=== PATIENT | female | born 1985 | race Caucasian/White ===

== ENCOUNTER 2016-05-02 21:58 | Observation (INO) ==
[2016-05-02 22:27] VITALS: BP 125/75
--- NOTE | 2016-05-02 22:57 | OB/GYN Progress Note ---
Date of Encounter: 05/02/16 Time of Encounter: 22:51 - Assessment and Plan (1) Acute cystitis during Current Visit: Yes Status: Acute continue course of abx follow up with research kennel supervisor as scheduled on 05/08 for follow up Qualifiers: Trimester: third trimester Qualified Code(s): O23.13 - Infections of bladder in , third trimester (2) Lumbar back pain Current Visit: Yes Status: Acute likely secondary to recommend support belt Qualifiers: Chronicity: unspecified Back pain laterality: unspecified Sciatica presence: unspecified whether sciatica present Qualified Code(s): M54.5 - Low back pain (3) Round ligament pain Current Visit: Yes Status: Acute secondary to recommend support belt Subjective - Subjective Principal diagnosis: UTI Interval history: 30 yo F at 35 weeks gestation presents c/o lumbar and lower abdominal cramping pain with increased frequency, urgency and hesitancy with urination that started approximately one week ago. She states she was seen by her OB yesterday, and started on Marcobid for UTI. Pt states that she has taken four doses so far and has no improvement of her symptoms. Pt denies fever, nausea, vomiting, pain or blood with urination, vaginal discharge or bleeding. Antepartum ROS: other (cramping lower back and abdominal pain) Objective - Vital Signs Vital Signs: Vital Signs Temp Pulse Resp BP 05/02/16 22:12 97.5 F L 107 18 125/75 Intake and Output 05/02/16 05/02/16 05/02/16 07:59 15:59 23:59 Output Total 50 / 50 Balance -50 / -50 Output: Urine 50 / 50 Other: Weight 86 kg Patient Weight 05/02/16 23:59 Weight 86 kg - Exam FHR: auscultation normal Auscultation: bilateral: normal Abdomen: Present: normal appearance, soft, gravid, other (nontender, -rebound, guarding,rigidity -CVA tenderness B/L) Uterus: Present: normal
[2016-05-02 23:01] LABS: Bilirubin,Urine Negative (Negative); Blood,Urine Negative (Negative); Clarity,Urine Turbid (Clear); Color,Urine Dark Yellow (Yellow); Glucose,Urine (UA) Normal (Normal); Ketones,Urine 15 mg/dL (Negative); Leukocyte Esterase,Urine Small (Negative); Nitrite,Urine Negative (Negative); PH,Urine 7.5 pH Units (5.0-8.0); Protein,Urine 30 mg/dL (Neg-Trace); Urobilinogen,Urine Normal (Normal)
[2016-05-02 23:02] LABS: Bacteria,Urine Few per hpf (None-Few); Hyaline Casts,Urine None Seen per lpf (None-Few); RBC,Urine 0-3 per hpf (0-3); Squamous Epithelial Cell,Urine Many per lpf (None-Few)
== END 2016-05-02 23:30 | disposition home or self-care (01) ==
LOC: INTOOBSV 21:58 → 1NENULAB 21:58 → UNDODISIN 23:30
PROVIDERS: ADMIT Obstetrics & Gynecology; ATTEND Obstetrics & Gynecology

== ENCOUNTER 2016-06-07 13:59 | Observation (INO) ==
[2016-06-07] MEDS ORDERED: Famotidine 20 MG/2 ML VIAL IVP PRN (14:35)
[2016-06-07] MEDS ORDERED: Naloxone 0.4 MG/ML INJ IVP PRN (14:35)
[2016-06-07] MEDS ORDERED: D5% in Lactated Ringers 1,000 ML IVC SCH (14:45)
--- NOTE | 2016-06-07 14:48 | OB/GYN History & Physical ---
Date of Encounter: 06/07/16 Time of Encounter: 14:55 Assessment and Plan (1) 40 weeks gestation of Current visit: Yes Status: Acute continued monitoring of FHR and contractions; IVF (2) Gestational hypertension Current visit: Yes Status: Acute PIH labs Qualifiers: Trimester: third trimester Qualified Code(s): O13.3 - Gestational [ -induced] hypertension without significant proteinuria, third trimester (3) Elective induction of labor planned Current visit: Yes Status: Suspected continued monitoring of fetus and mother with likely epidural for pain control History of Present Illness Chief complaint: 40 weeks ; Gestational HTN HPI: Ms. Mcqueen is a 30 year old female ; 40 weeks states that she was at the OB clinic being evaluated by the rack pusher and developed BP of 160/100 and was feeling contractions. She is a patient of Dr. Lira. Lisnet states that she has had 9 pregnancies, and only one was at 36 weeks due to deteriorating placental cord. Patients blood pressure is now 148/60. Patient denies fevers, nausea, vomitting. She was like an epidural SROM (-) JOVAN: 06/07/16 Blood type: A (+) (-) gbs, rubella, hbsag, t. pallidum, varicella Male: Tito Bottle feeding [facility] circumcision: yes UTI a few weeks ago; but treated and resolved Past Med Surg Social Fam HX - Past Medical History Medical history: no medical history, non-contributory Psychiatric history: no psych history - Past Surgical History Surgical History: non-contributory - Social History Smoking Status: Former smoker Smokeless Tobacco Status: No Alcohol use: none Drug use: none - Family History Mother Adopted: No Family Member Ethnicity: Non- Living Status: Still Living Hx Family Cardiac Disorders: Yes (triple bypass) Obstetrical History - Pregnancies : 9 Para: 9 - History/Complications History/Complications: gestational hypertension Medications and Allergies EPINEPHrine [Epipen] 0.3 mg IM ONCE #2 units 10/01/15 [Rx] Ferrous Sulfate 1 tab PO DAILY 05/02/16 [History] Caplet 1 tab PO DAILY 05/02/16 [History] Loratadine [Claritin] 10 mg PO DAILY 06/07/16 [History] Allergies venom-honey bee [bee venom (honey bee)] Allergy (Verified 05/02/16 22:27) Anaphylaxis Review of System OB All systems PM: reviewed and no additional remarkable complaints except as stated - Gastrointestinal Gastrointestinal: as per HPI, abdominal pain - Genitourinary Genitourinary: as per HPI Exam - Constitutional Constitutional: well developed, well nourished, no acute distress, average body habitus - HEENT HEENT: Normocephaly, Mucus Membranes Moist - Neck Neck exam: full ROM - Lungs Respiratory exam: CTAB - Cardiovascular Cardiovascular exam: RRR - Breasts Breast: bilateral: normal - Abdomen Abdomen: Present: bowel sounds normal - Extremities Extremities exam: normal capillary refill, normal inspection - Vagina Vagina: Present: normal moisture - Cervix Dilation: 3 (prn rack pusher) Effacement: 80 (prn rack pusher) Station: -1 - Uterus Uterus exam: Present: normal size, normal contour - Anus/Rectum Anus/Rectum: Present: normal perianal skin, heme negative Results Result Diagrams: 06/07/16 14:45 06/07/16 14:45 All other labs normal. - VTE Reasons for not Prescribing Prophylaxis: Treatment not Indicated - Low risk for VTE
[2016-06-07 15:06] LABS: Basophils % 0.4 %; Eosinophils # 0.1 K/mcL (0.0-0.6); Eosinophils % 0.5 %; Hematocrit 31.2 % (35.3-44.9); Hemoglobin 10.3 g/dL (11.5-15.4); Immature Granulocytes % 2.6 % (0-4); Lymphocytes # 1.6 K/mcL (0.6-4.6); Lymphocytes % 14.7 %; Mean Corpuscular Hemoglobin 28.8 pg (28.0-33.3); Mean Corpuscular Volume 87.2 fL (83.0-100.0); Mean Platelet Volume 9.5 fL (9.4-12.4); Monocytes % 9.1 %; Nucleated Red Blood Cells 0.2 /100 WBC (0); Platelet Count 277 K/mcL (140-400); Red Blood Count 3.58 M/mcL (3.82-4.97); Red Cell Distribution Width 15.8 % (11.5-14.5); Segmented Neutrophils % 72.7 %
[2016-06-07 15:19] LABS: Alanine Aminotransferase 10 Units/L (0-55); Aspartate Amino Transferase 23 Units/L (5-34); BUN/Creatinine Ratio 8 (6-26); Blood Urea Nitrogen 5 mg/dL (7-20); Lactate Dehydrogenase 275 Units/L (159-327); Uric Acid 5.4 mg/dL (2.6-6.0); eGFR For African Americans > 60 (> 60); eGFR For Non-African Americans > 60 (> 60)
[2016-06-07 15:46] LABS: Protein/Creatinine Ratio,Urine 0.29 mg/mg (0-0.20)
--- NOTE | 2016-06-07 16:10 | Discharge Summary ---
Date of Encounter: 06/07/16 Time of Encounter: 16:14 - Discharge Diagnosis (1) Gestational hypertension Priority: Primary Status: Acute Qualifiers: Trimester: third trimester Qualified Code(s): O13.3 - Gestational [ -induced] hypertension without significant proteinuria, third trimester (2) 40 weeks gestation of Priority: Secondary Status: Acute (3) Elective induction of labor planned Priority: Secondary Status: Suspected - Discharge Medications Home Medications: EPINEPHrine [Epipen] 0.3 mg IM ONCE #2 units 10/01/15 [Rx] Ferrous Sulfate 1 tab PO DAILY 05/02/16 [History] Caplet 1 tab PO DAILY 05/02/16 [History] Loratadine [Claritin] 10 mg PO DAILY 06/07/16 [History] Allergies/Adverse Reactions: Allergies venom-honey bee [bee venom (honey bee)] Allergy (Verified 05/02/16 22:27) Anaphylaxis Data Procedures and tests throughout hospitalization: Laboratory Tests 06/07/16 06/07/16 06/07/16 14:45 14:45 15:20 WBC 11.0 RBC 3.58 L Hgb 10.3 L Hct 31.2 L MCV 87.2 MCH 28.8 MCHC 33.0 RDW 15.8 H Plt Count 277 MPV 9.5 Immature Gran % 2.6 Seg Neutrophils % 72.7 Lymphocytes % 14.7 Monocytes % 9.1 Eosinophils % 0.5 Basophils % 0.4 Neutrophils # 8.0 Lymphocytes # 1.6 Monocytes # 1.0 Eosinophils # 0.1 Basophils # 0.0 Nucleated RBCs/100 WBC 0.2 H BUN 5 L Creatinine 0.60 Est GFR ( Amer) > 60 Est GFR (Non-Af Amer) > 60 BUN/Creatinine Ratio 8 Uric Acid 5.4 AST 23 ALT 10 Lactate Dehydrogenase 275 Urine Creatinine 219 Protein/Creatinin Ratio 0.29 H Urine Total Protein 64 H Labs on day of discharge: Labs from last 24 hours 06/07/16 06/07/16 06/07/16 15:20 14:45 14:45 WBC 11.0 RBC 3.58 L Hgb 10.3 L Hct 31.2 L MCV 87.2 MCH 28.8 MCHC 33.0 RDW 15.8 H Plt Count 277 MPV 9.5 Immature Gran % 2.6 Seg Neutrophils % 72.7 Lymphocytes % 14.7 Monocytes % 9.1 Eosinophils % 0.5 Basophils % 0.4 Neutrophils # 8.0 Lymphocytes # 1.6 Monocytes # 1.0 Eosinophils # 0.1 Basophils # 0.0 Nucleated RBCs/100 WBC 0.2 H BUN 5 L Creatinine 0.60 Est GFR ( Amer) > 60 Est GFR (Non-Af Amer) > 60 BUN/Creatinine Ratio 8 Uric Acid 5.4 AST 23 ALT 10 Lactate Dehydrogenase 275 Urine Creatinine 219 Protein/Creatinin Ratio 0.29 H Urine Total Protein 64 H Date of admission: 06/07/16 13:59 Primary care physician: PCP NO - Patient Status Disposition: Left Against Medical Advice Condition: Good Functional capacity at discharge: independent ambulation Overall status at discharge: patient is not back to baseline - Discharge Instructions Follow Up With: NO,PCP [Primary Care Provider] - Additional Instructions: YOU ARE LEAVING AGAINST MEDICAL ADVICE. You have been counseled on the risks of leaving today which include but are not limited to demise, your , end organ damage, and seizures. Please to return to labor and delivery should you change your mind about your expected delivery. Hospital Course MARKETING OPERATIONS MANAGER Time Attestation: Total time spent providing and/or coordinating discharge services: Exam - Constitutional General appearance IM: A&O X 3 - Respiratory Respiratory exam: Present: CTAB. Absent: respiratory distress - Cardiovascular Cardiovascular exam IM: Present: RRR. Absent: JVD - GI/Abdominal GI/Abdominal exam IM: normal bowel sounds, no peritoneal signs - Uterine Tone: Firm Uterus Position: 4 Fingers Above Umbilicus, Midline - Extremities Exam Extremities exam IM: Present: normal capillary refill, normal inspection - Neurological Exam Neurological exam: alert, normal gait, oriented X3, strengths equal and symetr throughout - VTE Reasons for not Prescribing Prophylaxis: Treatment not Indicated - Low risk for VTE
== END 2016-06-07 16:51 | disposition left against medical advice (07) | DRG 566 ==
LOC: 1NENULAB 13:59 → INTOOBSV 13:59
PROVIDERS: ADMIT Obstetrics & Gynecology; ATTEND Obstetrics & Gynecology

== ENCOUNTER 2017-11-08 08:42 | Inpatient (IN) ==
[2017-11-08] MEDS ORDERED: Ringers Solution, Lactated 1,000 ML ONE (09:04)
[2017-11-08] MEDS ORDERED: Oxytocin 20 units/ LR 1000 mL 20 UNIT/1,000 ML BAG IVC ONE (09:04)
[2017-11-08] MEDS ORDERED: Naloxone 0.4 MG/ML INJ IVP PRN (09:10)
[2017-11-08] MEDS ORDERED: Famotidine 20 MG/2 ML VIAL IVP PRN (09:10)
[2017-11-08] MEDS ORDERED: Ondansetron 4 MG/2 ML VIAL IVP PRN (09:10)
[2017-11-08] MEDS ORDERED: Metoclopramide 10 MG/2 ML VIAL IVP PRN (09:10)
[2017-11-08] MEDS ORDERED: Penicillin G Potassium 5,000,000 UNIT in 0.9 % Sodium Chloride Mini Bag 100 ML IVPB ONE (09:33)
[2017-11-08] MEDS ORDERED: *HR* Oxytocin 10 UNIT/ML VIAL IM ONE ×2 (10:16→13:05)
--- NOTE | 2017-11-08 10:37 | OB/GYN Procedure Note ---
Delivery - Delivery Date: 11/08/17 Provider: Jigar Lira Intrapartum events: meconium, precipitous labor- <3hr Delivery induction: none Delivery monitor: external FHT, external uterine Anesthesia: none Quantitated Blood Loss: 100 - Infant (s) A Infant Delivery Date: 11/08/17 Delivery Time: 10:09 Presentation: vertex Position: DIANDRA Route of delivery: vacuum extraction Gender: Female Viability: Viable Pounds: 8 Ounces: 11 Weight Gram: 3.535 kg at 1 minute: 4 at 5 mins: 7 Shoulder Dystocia: encountered Shoulder Dystocia Maneuvers: Cathy maneuver, suprapubic pressure, Mcqueen Screw maneuver Specimens collected: cord blood Placenta: spontaneous Cord: nuchal cord, nuchal cut - Repair Episiotomy: none Laceration Description: None - Complications Delivery complications: none Delivery comments: Patient is a 31-year-old 11 para 10 at approximately 39 and 6 seconds weeks who presented to labor and delivery by EMS with complaint of contractions and rupture membranes. Patient states she had care at another institution however we cannot find any records stating that she is had any care. Patient states she started deonna and middle of the night and approximately 8 AM had ruptured membranes thick meconium upon arrival to labor and delivery patient was 8-9 cm. Patient got to anterior lip had uncontrollable urge to push and started pushing heart tones were dropping into the 60s with slow to return to baseline. We could reduce the anterior lip but we could not get it to push through it. It is at this point I was asked to come and assist the patient determine if patient needed a vacuum extraction due to the decelerations. The patient attempted to push multiple times she was pushing ineffectively and tones were remaining down. It was side this time we go ahead and use the Kiwi vacuum and help with the delivery. We did apply the device increase the pressure to 500 mmHg the initial pull came off because patient was out of control and from her body around in the bed. We attempted a couple more times with one another pop off but finally we get the patient to focus and with an additional push she was able to deliver a viable female infant in left occiput anterior presentation at 1009. We did encounter shoulder dystocia Cathy maneuver suprapubic pressure and wood screw was used to get the posterior shoulder delivered. There was a nuchal cord 1 it was tied it was clamped and cut. The infant was then immediately taken to the warmer and handed off to waiting pediatric team. Cord blood was collected and placenta was then delivered spontaneously there was a three-vessel cord and there was noted to be approximately 10% abruption. Endoscopy Nurse was Dr. Lira judicial assistant Dr. Garcias PGY1, anesthesia none estimated blood loss 100 mL. Perineum cervix and vagina was well visualized intact. She will be observed 2 hours before being taken floor. - Disposition Mom disposition: stable in LDR disposition: stable in LDR
[2017-11-08 10:46] LABS: Basophils % 0.2 %; Eosinophils # 0.1 K/mcL (0.0-0.6); Eosinophils % 0.9 %; Hematocrit 35.2 % (35.3-44.9); Hemoglobin 11.4 g/dL (11.5-15.4); Immature Granulocytes % 0.7 % (0-4); Lymphocytes % 19.8 %; Mean Corpuscular HGB Conc 32.4 g/dL (31.6-35.5); Mean Corpuscular Hemoglobin 28.6 pg (28.0-33.3); Mean Corpuscular Volume 88.4 fL (83.0-100.0); Mean Platelet Volume 10.2 fL (9.4-12.4); Monocytes # 0.9 K/mcL (0.0-1.3); Monocytes % 8.6 %; Neutrophils # 6.9 K/mcL (1.6-8.9); Platelet Count 365 K/mcL (140-400); Red Blood Count 3.98 M/mcL (3.82-4.97); Red Cell Distribution Width 13.9 % (11.5-14.5); Segmented Neutrophils % 69.8 %
[2017-11-08 11:10] LABS: Alanine Aminotransferase 10 Units/L (7-52); Aspartate Amino Transferase 16 Units/L (13-39); BUN/Creatinine Ratio 17 (6-26); Blood Urea Nitrogen 8 mg/dL (6-20); Lactate Dehydrogenase 170 Units/L (140-271); Uric Acid 4.6 mg/dL (2.3-7.6); eGFR For Non-African Americans > 60 (> 60)
--- NOTE | 2017-11-08 11:12 | OB/GYN History & Physical ---
Date of Encounter: 11/08/17 Time of Encounter: 11:06 Assessment and Plan (1) Hypertension Current visit: Yes Status: Acute Qualifiers: Hypertension type: unspecified Qualified Code(s): I10 - Essential (primary ) hypertension (2) Asthma Current visit: Yes Status: Acute Qualifiers: Asthma severity: unspecified severity Asthma persistence: intermittent Asthma complication type: with status asthmaticus Qualified Code(s): J45.22 - Mild intermittent asthma with status asthmaticus (3) Labor abnormality, delivered Current visit: Yes Status: Acute 1. Precipitous delivery less than 3 hours, complicated by meconium discharge. 2. Delivery complications included shoulder dystocia which was managed by suprapubic pressure, Cathy maneuver, as well as Mcqueen Screw maneuver, as well as a tight nuchal cord which was clamped and cut upon identification. 2. Viable female born at 8 lbs. 11 oz. and 3.535 kg via vacuum extraction assisted delivery at 10:09 AM with Apgars of 4 and 7 at one and 5 minutes, respectively. taken to nursery for special care precautions. 3. Estimated blood loss of 100 mL History of Present Illness Chief complaint: Active labor HPI: Ms. Mcqueen is a 31 year old female (,0,1,10) presenting to [place] labor and delivery via EMS at 39 weeks +6 days gestation by dates. Patient has a history of spontaneous in 2008 at 5 weeks gestational age from unknown causes. Current has been complicated by hypertension, asthma , severe environmental allergies, as well as tobacco use. Patient states that she began deonna yesterday and that the contractions were mild and intermittent progressing throughout the day. Patient reports spontaneous rupture of membranes this morning at approximately 8 AM. Patient was brought to [facility] labor and delivery via EMS at approximately 9 AM and was 8- 9 cm dilated on presentation and fully effaced. -Prior to spontaneous rupture of membranes patient reports good movement, and denies abnormal vaginal bleeding or discharge. Past Med Surg Social Fam HX - Past Medical History Medical history: asthma, hypertension, other (Environmental allergies) Psychiatric history: no psych history - Past Surgical History Surgical History: no surgical history - Social History Smoking Status: Former smoker (Patient states that she occasionally will smoke one to 2 cigarettes per day) Smokeless Tobacco Status: No Alcohol use: none Drug use: none Activity Level: Independent ambulation - Family History Mother Adopted: No Family Member Ethnicity: Non- Living Status: Still Living Hx Family Cardiac Disorders: Yes (triple bypass) Obstetrical History - Pregnancies : 11 Para: 10 Term: 10 : 0 Ab's: 1 Livin - History/Complications History/Complications: Patient has a positive history of spontaneous in 2008 at 5 weeks gestational age from unknown causes. Medications and Allergies EPINEPHrine [Epipen] 0.3 mg IM ONCE #2 units 10/01/15 [Rx] Ferrous Sulfate 1 tab PO DAILY 05/02/16 [History] Caplet 1 tab PO DAILY 05/02/16 [History] Loratadine [Claritin] 10 mg PO PRN PRN 06/07/16 [History] DiphenhydraMINE [Benadryl] 25 mg PO PRN PRN 11/08/17 [History] 3 Allergy/AdvReac Type Severity Reaction Status Date / Time venom-honey bee Allergy Anaphylaxis Verified 10/05/16 00:15 [bee venom (honey bee)] Review of System OB All systems PM: reviewed and no additional remarkable complaints except as stated - Constitutional Constitutional ROS IM: no chills, no fever(s) - Nose, mouth, and throat Nose, mouth and throat: no dysphagia - Cardiovascular Cardiovascular: edema, pedal edema, no chest pain, no dyspnea - Respiratory Respiratory: no dyspnea - Gastrointestinal Gastrointestinal: nausea, no abdominal pain, no vomiting - Genitourinary Genitourinary: no dysuria - Muscloskeletal Musculoskeletal: bilateral: ankle swelling - Neurological Nerological: no dizziness, no loss of vision, no numbness, no paresthesias Exam - Constitutional Constitutional: well developed, well nourished, no acute distress, obese, other (Pulse motor and sensation are intact in the 4 extremities) - HEENT HEENT: EOMI, PERRL, Normocephaly, Mucus Membranes Moist - Neck Neck exam: full ROM - Lungs Respiratory exam: CTAB - Cardiovascular Cardiovascular exam: RRR, +S1, +S2, systolic murmur (2/6 systolic murmur noted in the second intercostal space on the left side of sternum.) - Abdomen Abdomen: Present: bowel sounds normal, non tender. Absent: diffuse tenderness, guarding noted, hepatomegaly, splenomegaly, mass - Extremities Extremities exam: pedal edema (1+ pitting edema noted in bilateral lower extremities. Patient denies numbness or paresthesias) Results Result Diagrams: 11/08/17 09:29 11/08/17 09:29 Abnormal lab results Hgb 11.4 g/dL (11.5-15.4) L 11/08/17 09:29 Hct 35.2 % (35.3-44.9) L 11/08/17 09: All other labs normal. - VTE Reasons for not Prescribing Prophylaxis: Treatment not Indicated - Low risk for VTE - Attending Attestation I examined this patient and my medical decision-making was reviewed with the Resident Physician. I agree with the documented findings, disposition and treatment plan as described except to the extent set forth below. Lester Lira DO
[2017-11-08 11:23] LABS: HIV-1&2 Antibody & p24 Ag Nonreactive (Nonreactive); Hepatitis B Surface Antigen Nonreactive (Nonreactive)
[2017-11-08] MEDS ORDERED: Measles/Mumps/Rubella Vacc 0.5 ML VIAL SQ PRN (12:10)
[2017-11-08] MEDS ORDERED: Acetaminophen 325 MG TABLET PO PRN (12:10)
[2017-11-08] MEDS ORDERED: Penicillin G Potassium 2,500,000 UNIT in 0.9 % Sodium Chloride 100 ML IVPB SCH (13:30)
[2017-11-08 13:35] LABS: Rubella IgG Antibody POSITIVE (POSITIVE); Varicella Zoster IgG Antibody Positive
[2017-11-08 14:45] LABS: Amphetamine Screen,Urine Positive ng/mL (Cutoff=1000); Barbiturate Screen,Urine Negative ng/mL (Cutoff=200); Benzodiazepines Screen,Urine Negative ng/mL (Cutoff=200); Cannabinoid Screen,Urine Negative ng/mL (Cutoff = 50); Cocaine Screen,Urine Negative ng/mL (Cutoff= 300); Opiate Screen,Urine Negative ng/mL (Cutoff=300); Phencyclidine Screen,Urine Negative ng/mL (Cutoff=25)
[2017-11-08] MEDS: Ibuprofen 600 MG TABLET PO PRN (22:47)
[2017-11-09 06:20] LABS: Basophils % 0.2 %; Eosinophils # 0.1 K/mcL (0.0-0.6); Eosinophils % 0.7 %; Immature Granulocytes % 0.5 % (0-4); Lymphocytes # 1.7 K/mcL (0.6-4.6); Lymphocytes % 15.4 %; Mean Corpuscular HGB Conc 32.3 g/dL (31.6-35.5); Mean Corpuscular Hemoglobin 28.7 pg (28.0-33.3); Mean Corpuscular Volume 89.1 fL (83.0-100.0); Mean Platelet Volume 9.8 fL (9.4-12.4); Monocytes # 1.1 K/mcL (0.0-1.3); Monocytes % 9.7 %; Neutrophils # 8.2 K/mcL (1.6-8.9); Platelet Count 273 K/mcL (140-400); Red Blood Count 3.48 M/mcL (3.82-4.97); Segmented Neutrophils % 73.5 %
[2017-11-09 08:50] VITALS: BP 98/65
[2017-11-09] MEDS: Ibuprofen 600 MG TABLET PO PRN (08:59)
[2017-11-09] MEDS ORDERED: Prenatal Vit/FA 1 EACH TABLET PO SCH (09:00)
--- NOTE | 2017-11-09 11:55 | Discharge Summary ---
Date of Encounter: 11/09/17 Time of Encounter: 11:51 - Discharge Diagnosis (1) Vaginal delivery Priority: Primary Status: Acute Comments: Stable in PP, pain well mangaged on po pain medications, tolerates po diet, infant in nursery, desires discharge. (2) anemia Priority: Primary Status: Acute - Discharge Medications Prescriptions: Ibuprofen [Motrin] 600 mg PO Q6HR PRN #60 tablet PRN Reason: Cramping Docusate [Colace] 100 mg PO BID #60 capsule Ferrous Sulfate 325 mg PO DAILY #60 tablet Home Medications: Loratadine [Claritin] 10 mg PO PRN PRN 06/07/16 [History] DiphenhydraMINE [Benadryl] 25 mg PO PRN PRN 11/08/17 [History] Acetaminophen [Tylenol] 650 mg PO Q6HR PRN tablet 11/09/17 [Rx] Docusate [Colace] 100 mg PO BID #60 capsule 11/09/17 [Rx] Ferrous Sulfate 325 mg PO DAILY #60 tablet 11/09/17 [Rx] Ibuprofen [Motrin] 600 mg PO Q6HR PRN #60 tablet 11/09/17 [Rx] Allergies/Adverse Reactions: 3 Allergy/AdvReac Type Severity Reaction Status Date / Time venom-honey bee Allergy Anaphylaxis Verified 10/05/16 00:15 [bee venom (honey bee)] Data Procedures and tests throughout hospitalization: Laboratory Tests 11/08/17 11/08/17 11/08/17 09:29 09:29 09:29 WBC 9.9 RBC 3.98 Hgb 11.4 L Hct 35.2 L MCV 88.4 MCH 28.6 MCHC 32.4 RDW 13.9 Plt Count 365 MPV 10.2 Immature Gran % 0.7 Seg Neutrophils % 69.8 Lymphocytes % 19.8 Monocytes % 8.6 Eosinophils % 0.9 Basophils % 0.2 Neutrophils # 6.9 Lymphocytes # 2.0 Monocytes # 0.9 Eosinophils # 0.1 Basophils # 0.0 BUN 8 Creatinine 0.48 L Est GFR ( Amer) > 60 Est GFR (Non-Af Amer) > 60 BUN/Creatinine Ratio 17 Uric Acid 4.6 AST 16 ALT 10 Lactate Dehydrogenase 170 Urine Opiates Screen Ur Barbiturates Screen Ur Phencyclidine Scrn Ur Amphetamines Screen U Benzodiazepines Scrn Urine Cocaine Screen U Marijuana (THC) Screen Ur Drug Screen Interp T.pallidum Ab Interpret Hep Bs Antigen Nonreactive HIV Ag/Ab Combo Qual Nonreactive Rubella IgG Antibody VZV IgG Antibody 11/08/17 11/08/17 11/09/17 09:29 11:00 06:04 WBC 11.2 H RBC 3.48 L Hgb 10.0 L Hct 31.0 L MCV 89.1 MCH 28.7 MCHC 32.3 RDW 14.0 Plt Count 273 MPV 9.8 Immature Gran % 0.5 Seg Neutrophils % 73.5 Lymphocytes % 15.4 Monocytes % 9.7 Eosinophils % 0.7 Basophils % 0.2 Neutrophils # 8.2 Lymphocytes # 1.7 Monocytes # 1.1 Eosinophils # 0.1 Basophils # 0.0 BUN Creatinine Est GFR ( Amer) Est GFR (Non-Af Amer) BUN/Creatinine Ratio Uric Acid AST ALT Lactate Dehydrogenase Urine Opiates Screen Negative Ur Barbiturates Screen Negative Ur Phencyclidine Scrn Negative Ur Amphetamines Screen Positive H U Benzodiazepines Scrn Negative Urine Cocaine Screen Negative U Marijuana (THC) Screen Negative Ur Drug Screen Interp See Below T.pallidum Ab Interpret Negative Hep Bs Antigen HIV Ag/Ab Combo Qual Rubella IgG Antibody POSITIVE VZV IgG Antibody Positive Labs on day of discharge: Labs from last 24 hours 11/09/17 11/08/17 11/08/17 06:04 11:00 09:29 WBC 11.2 H RBC 3.48 L Hgb 10.0 L Hct 31.0 L MCV 89.1 MCH 28.7 MCHC 32.3 RDW 14.0 Plt Count 273 MPV 9.8 Immature Gran % 0.5 Seg Neutrophils % 73.5 Lymphocytes % 15.4 Monocytes % 9.7 Eosinophils % 0.7 Basophils % 0.2 Neutrophils # 8.2 Lymphocytes # 1.7 Monocytes # 1.1 Eosinophils # 0.1 Basophils # 0.0 Urine Opiates Screen Negative Ur Barbiturates Screen Negative Ur Phencyclidine Scrn Negative Ur Amphetamines Screen Positive H U Benzodiazepines Scrn Negative Urine Cocaine Screen Negative U Marijuana (THC) Screen Negative Ur Drug Screen Interp See Below T.pallidum Ab Interpret Negative Rubella IgG Antibody POSITIVE VZV IgG Antibody Positive Date of admission: 11/08/17 08:42 Primary care physician: PCP NONE Consults: 11/08/17 12:10 Consult to Card Puncher [CONS] Routine Comment: Vaginal delivery, consult needed Consult to [employer] Grade Reading Teacher [CONS] Routine Reason for SW Consult: limited to no care Discharging clinician: Yomaira Moreno Anticipated date of discharge: 11/09/17 - Patient Status Disposition: Home, Self-Care Condition: Good Functional capacity at discharge: independent ambulation Overall status at discharge: patient is progressing back to baseline - Discharge Instructions Instructions: Anemia (GEN) Follow Up With: NONE,PCP [Primary Care Provider] - Jigar Lira, DO [Partnered Physician] - - Diet and Activity Activity: resume usual activities as tolerated Diet: regular diet Hospital Course Reason for admission: active labor, IUP at term Delivery: Episiotomy: none Laceration: none Other procedures: none complications: none Discharge diagnosis: IUP at term delivered [place] baby: female Hospital course: Delivery - Delivery Date: 11/08/17 Provider: Jigar Lira Intrapartum events: meconium, precipitous labor- <3hr Delivery induction: none Delivery monitor: external FHT, external uterine Anesthesia: none Quantitated Blood Loss: 100 - Infant (s) A Delivery Date: 11/08/17 Delivery Time: 10:09 Presentation: vertex Position: DIANDRA Route of delivery: vacuum extraction Gender: Female Viability: Viable Pounds: 8 Ounces: 11 Weight Gram: 3.535 kg at 1 minute: 4 at 5 mins: 7 Shoulder Dystocia: encountered Shoulder Dystocia Maneuvers: Cathy maneuver, suprapubic pressure, Mcqueen Screw maneuver Specimens collected: cord blood Placenta: spontaneous Cord: nuchal cord, nuchal cut - Repair Episiotomy: none Laceration Description: None - Complications Delivery complications: none Delivery comments: Patient is a 31-year-old 11 para 10 at approximately 39 and 6 seconds weeks who presented to labor and delivery by EMS with complaint of contractions and rupture membranes. Patient states she had care at another institution however we cannot find any records stating that she is had any care. Patient states she started deonna and middle of the night and approximately 8 AM had ruptured membranes thick meconium upon arrival to labor and delivery patient was 8-9 cm. Patient got to anterior lip had uncontrollable urge to push and started pushing heart tones were dropping into the 60s with slow to return to baseline. We could reduce the anterior lip but we could not get it to push through it. It is at this point I was asked to come and assist the patient determine if patient needed a vacuum extraction due to the decelerations. The patient attempted to push multiple times she was pushing ineffectively and tones were remaining down. It was side this time we go ahead and use the Kiwi vacuum and help with the delivery. We did apply the device increase the pressure to 500 mmHg the initial pull came off because patient was out of control and from her body around in the bed. We attempted a couple more times with one another pop off but finally we get the patient to focus and with an additional push she was able to deliver a viable female in left occiput anterior presentation at 1009. We did encounter shoulder dystocia Cathy maneuver suprapubic pressure and wood screw was used to get the posterior shoulder delivered. There was a nuchal cord 1 it was tied it was clamped and cut. The infant was then immediately taken to the warmer and handed off to waiting pediatric team. Cord blood was collected and placenta was then delivered spontaneously there was a three-vessel cord and there was noted to be approximately 10% abruption. Boilermaker Mechanic was Dr. Lira assistant site manager Dr. Garcias PGY1, anesthesia none estimated blood loss 100 mL. Perineum cervix and vagina was well visualized intact. She will be observed 2 hours before being taken floor. - Disposition Mom disposition: stable in PP and appropriate for discharge Time Attestation: Total time spent providing and/or coordinating discharge services: Time Spent: Less than 30 minutes Exam - Constitutional Vitals: Temp Pulse Resp BP Pulse Ox 97.6 F 69 16 98/65 98 11/09/17 08:49 11/09/17 08:49 11/09/17 09:03 11/09/17 08:49 11/09/17 08:49 General appearance IM: A&O X 3 - Respiratory Respiratory exam: Present: CTAB - Cardiovascular Cardiovascular exam IM: Present: RRR - GI/Abdominal GI/Abdominal exam IM: soft - Uterine Tone: Firm Uterus Position: At Umbilicus - Extremities Exam Extremities exam IM: Present: normal capillary refill, normal inspection - Neurological Exam Neurological exam: normal gait, oriented X3 - Psychiatric Additional comments: Reports good mood, states tearful at times.
== END 2017-11-09 13:06 | disposition home or self-care (01) | DRG 560 ==
LOC: 1NENULAB → OBSVTOIN 08:42 → 1NENUOBS 12:09
PROVIDERS: ADMIT Registered Nurse; ATTEND Registered Nurse